=== PATIENT | female | born 1930 ===

== ENCOUNTER 2019-12-11 14:42 | Inpatient (IN) ==
[2019-12-11] MEDS ORDERED: ONDANSETRON 4 MG/2 ML VIAL IV PRN (16:15)
[2019-12-11] MEDS ORDERED: ALBUTEROL 2.5 MG/3 ML NEB RESP TX PRN (16:15)
[2019-12-11] MEDS ORDERED: EPINEPHrine 1 MG/ML VIAL ONE (16:22)
[2019-12-11] MEDS ORDERED: ALBUTEROL/IPRATROPIUM 3 ML NEB RESP TX PRN (16:24)
[2019-12-11] MEDS ORDERED: ATROPINE 1 MG/10 ML SYRINGE IV ONE (16:25)
[2019-12-11] MEDS ORDERED: LACTATED RINGERS 1,000 ML IV ONE (16:37)
[2019-12-11] MEDS: PANTOPRAZOLE 40 MG VIAL IV SCH (16:45)
[2019-12-11] MEDS ORDERED: ENOXAPARIN 30 MG/0.3 ML SYRINGE IV ONE (17:01)
[2019-12-11] MEDS ORDERED: MIDAZOLAM 2 MG/2 ML VIAL ONE (17:31)
[2019-12-11] MEDS ORDERED: NOREPINEPHRINE 4 MG/4 ML VIAL IV ONE (17:33)
[2019-12-11] MEDS: MIDAZOLAM 2 MG/2 ML VIAL IV PRN (17:45)
[2019-12-11] MEDS ORDERED: POTASSIUM CHLORIDE RIDER 10 MEQ in PREMIX 1 EACH IV PRN (18:24)
[2019-12-11] MEDS ORDERED: MAGNESIUM SULF RIDER 2 GM in PREMIX 1 EACH IV PRN (18:25)
[2019-12-11] MEDS ORDERED: MAGNESIUM SULF RIDER 4 GM in PREMIX 1 EACH IV PRN (18:25)
[2019-12-11] MEDS ORDERED: fentaNYL 100 MCG/2 ML VIAL IV ONE (18:26)
[2019-12-11] MEDS ORDERED: MEPERIDINE 50 MG/1 ML VIAL IV PRN (18:27)
[2019-12-11] MEDS ORDERED: GLUCAGON 1 MG VIAL IM PRN (18:28)
[2019-12-11] MEDS ORDERED: DEXTROSE 50% 25 GM/50 ML VIAL IV PRN (18:28)
[2019-12-11] MEDS ORDERED: fentaNYL 100 MCG/2 ML VIAL IV PRN (18:33)
[2019-12-11 19:06] LABS: ABG Base Excess -0.5 MMOL/L (-2.5-2.5); ABG PCO2 40.7 MM HG (35-48); ABG PH 7.386 (7.35-7.45); ABG TCO2 21.9 MMOL/L (23-27)
[2019-12-11] MEDS: fentaNYL INJ 1,250 MCG in SODIUM CHLORIDE 0.9% 225 ML IV PRN (20:12)
[2019-12-11] MEDS: MIDAZOLAM 100 MG in SODIUM CHLORIDE 0.9% 80 ML IV PRN (20:13)
[2019-12-11] MEDS: CISATRACURIUM 200 MG in SODIUM CHLORIDE 0.9% 180 ML IV PRN (20:13)
[2019-12-11] MEDS: LACTATED RINGERS 1,000 ML IV SCH (20:15)
[2019-12-11 20:42] LABS: Albumin 2.9 G/DL (3.4-5.0); Bilirubin,Total 0.4 MG/DL (0.2-1.0); CKMB % 4.2 %; Osmolality,Calculated 290.5 MOS/KG (273-304); Total Protein 5.9 G/DL (6.4-8.3); Troponin I 2.13 NG/ML (0.00-0.045)
[2019-12-11 20:44] LABS: Basophils % 0.2 % (0.0-0.8); Eosinophils % 0.2 % (0.00-10.9); Hematocrit 34.8 VOL% (35.7-47.0); Immature Granulocytes % 1.9 %; Immature Granulocytes Absolute 0.33 #; Lymphocytes % 5.9 % (21.3-54.2); Mean Corpuscular HGB Conc 31.6 GM/DL (32-36); Mean Corpuscular Volume 96.7 FL (87-102); Mean Platelet Volume 11.4 FL (9.6-12.0); Monocytes % 5.5 % (1.7-12.7); Neutrophils % 86.3 % (38.7-73.9); Platelet Count 172 T/CUMM (130-400); Red Cell Distribution Width 12.6 % (9.3-17.3); White Blood Count 17.7 T/CUMM (4-12)
[2019-12-11] MEDS: INSULIN REGULAR 100 UNIT/ML IV SCH (20:48)
[2019-12-11 20:51] LABS: INR 1.1; PT Patient Result 11.8 SECS (9.8-11.9)
[2019-12-11] MEDS: ALBUTEROL 2.5 MG/3 ML NEB RESP TX SCH (20:52)
[2019-12-11] MEDS ORDERED: ENOXAPARIN 30 MG/0.3 ML SYRINGE SUBCUT SCH (21:00)
[2019-12-11 21:25] LABS: Band Neutrophils 2 % (0-10); Lymphocytes 12 % (20-55); Platelet Estimate Normal; Segmented Neutrophils 81 % (50-85); Total Cells Counted 100
[2019-12-11] MEDS: MINERAL OIL/PETROLATUM OPH OINT 3.5 GM TUBE BOTH EYES SCH (21:59)
[2019-12-12] MEDS: INSULIN REGULAR 100 UNIT/ML IV SCH ×6 (00:27→20:11)
[2019-12-12 00:48] LABS: Blood Urea Nitrogen 33 MG/DL (7-18); CKMB % 4.4 %; Estimated Glom Filtration Rate 30 ML/MIN; Glucose 247 MG/DL (74-106); Osmolality,Calculated 295.3 MOS/KG (273-304)
[2019-12-12 00:49] LABS: INR 1.2; PT Patient Result 12.4 SECS (9.8-11.9)
[2019-12-12 01:10] LABS: Basophils % 0.2 % (0.0-0.8); Eosinophils % 0.1 % (0.00-10.9); Hemoglobin 10.5 GM/DL (12.0-16.0); Immature Granulocytes % 1.3 %; Immature Granulocytes Absolute 0.19 #; Lymphocytes # 0.9 10*3/uL (1.4-4.0); Lymphocytes % 5.9 % (21.3-54.2); Mean Corpuscular HGB Conc 32.8 GM/DL (32-36); Mean Platelet Volume 11.8 FL (9.6-12.0); Monocytes % 5.1 % (1.7-12.7); Neutrophils % 87.4 % (38.7-73.9); Platelet Count 156 T/CUMM (130-400); Red Blood Count 3.44 MC/CUMM (3.8-5.5); Red Cell Distribution Width 12.5 % (9.3-17.3); White Blood Count 14.9 T/CUMM (4-12)
[2019-12-12] MEDS: POTASSIUM CHLORIDE RIDER 20 MEQ in PREMIX 1 EACH IV PRN ×2 (01:18→08:00)
[2019-12-12 01:39] LABS: Band Neutrophils 2 % (0-10); Hypochromasia Slight; Lymphocytes 10 % (20-55); Platelet Estimate Normal; Segmented Neutrophils 85 % (50-85); Total Cells Counted 100
[2019-12-12] MEDS: LACTATED RINGERS 1,000 ML IV SCH ×4 (01:59→23:05)
[2019-12-12] MEDS: ALBUTEROL 2.5 MG/3 ML NEB RESP TX SCH (02:11)
[2019-12-12] MEDS: fentaNYL INJ 1,250 MCG in SODIUM CHLORIDE 0.9% 225 ML IV PRN ×3 (02:39→17:00)
[2019-12-12 03:38] LABS: ABG HCO3 22.8 MMOL/L (20-26); ABG TCO2 15.2 MMOL/L (23-27)
[2019-12-12 03:44] LABS: ABG PCO2 15.3 MM HG (35-48); ABG PH 7.653 (7.35-7.45)
[2019-12-12 03:45] LABS: Basophils % 0.1 % (0.0-0.8); Eosinophils % 0.1 % (0.00-10.9); Hematocrit 31.5 VOL% (35.7-47.0); Hemoglobin 10.6 GM/DL (12.0-16.0); Immature Granulocytes % 0.6 %; Immature Granulocytes Absolute 0.08 #; Lymphocytes % 7.1 % (21.3-54.2); Mean Corpuscular HGB Conc 33.7 GM/DL (32-36); Mean Corpuscular Volume 89.5 FL (87-102); Mean Platelet Volume 11.5 FL (9.6-12.0); Monocytes % 4.8 % (1.7-12.7); Neutrophils % 87.3 % (38.7-73.9); Platelet Count 147 T/CUMM (130-400); Red Blood Count 3.52 MC/CUMM (3.8-5.5); Red Cell Distribution Width 12.4 % (9.3-17.3); White Blood Count 13.9 T/CUMM (4-12)
[2019-12-12 04:09] LABS: Albumin 2.7 G/DL (3.4-5.0); Bilirubin,Total 0.6 MG/DL (0.2-1.0); Calcium 7.8 MG/DL (8.5-10.1); Osmolality,Calculated 293.4 MOS/KG (273-304); Total Protein 5.5 G/DL (6.4-8.3)
[2019-12-12 04:11] LABS: Band Neutrophils 2 % (0-10); Hypochromasia 1+; Lymphocytes 7 % (20-55); Platelet Estimate Adequate; Segmented Neutrophils 86 % (50-85); Total Cells Counted 100
[2019-12-12 06:53] LABS: Basophils % 0.1 % (0.0-0.8); Eosinophils % 0.1 % (0.00-10.9); Hematocrit 32.3 VOL% (35.7-47.0); Hemoglobin 10.9 GM/DL (12.0-16.0); Immature Granulocytes % 1.3 %; Immature Granulocytes Absolute 0.14 #; Lymphocytes # 0.8 10*3/uL (1.4-4.0); Lymphocytes % 7.5 % (21.3-54.2); Mean Corpuscular HGB Conc 33.7 GM/DL (32-36); Mean Platelet Volume 11.3 FL (9.6-12.0); Platelet Count 122 T/CUMM (130-400); Red Blood Count 3.55 MC/CUMM (3.8-5.5); Red Cell Distribution Width 12.1 % (9.3-17.3)
[2019-12-12 06:58] LABS: INR 1.1; PT Patient Result 11.7 SECS (9.8-11.9); Partial Thromboplastin Time 29.3 SECS (23.9-33.8)
[2019-12-12 07:10] LABS: ABG Base Excess -2.3 MMOL/L (-2.5-2.5); ABG HCO3 18.5 MMOL/L (20-26); ABG Oxygen Saturation 98.9 % (95-100); ABG PCO2 21.1 MM HG (35-48); ABG PO2 210.7 MM HG (80-95); ABG TCO2 19.1 MMOL/L (23-27)
[2019-12-12 07:17] LABS: Band Neutrophils 1 % (0-10); CKMB % 4.7 %; Calcium 8.3 MG/DL (8.5-10.1); Lymphocytes 2 % (20-55); Osmolality,Calculated 292.4 MOS/KG (273-304); Platelet Estimate Normal; Segmented Neutrophils 96 % (50-85); Total Cells Counted 100
[2019-12-12 07:19] LABS: Hypochromasia Slight; Troponin I 1.35 NG/ML (0.00-0.045)
[2019-12-12 09:06] LABS: ABG Base Excess -1.9 MMOL/L (-2.5-2.5); ABG HCO3 22.8 MMOL/L (20-26); ABG Oxygen Saturation 99.9 % (95-100); ABG PCO2 27.5 MM HG (35-48); ABG PH 7.482 (7.35-7.45); ABG TCO2 18.5 MMOL/L (23-27)
[2019-12-12] MEDS: MINERAL OIL/PETROLATUM OPH OINT 3.5 GM TUBE BOTH EYES SCH ×3 (09:14→20:12)
[2019-12-12] MEDS: ENOXAPARIN 40 MG/0.4 ML SYRINGE SUBCUT SCH (09:14)
[2019-12-12] MEDS: POTASSIUM CHLORIDE 20 MEQ/15 ML UDCUP PER TUBE SCH ×3 (09:14→17:20)
[2019-12-12 10:53] LABS: Bilirubin,Urine Negative (Negative); Blood, Urine Small mg/dL (Negative); Glucose,Urine (UA) 50 mg/dL (Negative); Hyaline Casts,Urine 1 /LPF (0-3); Ketones,Urine 20 mg/dL (Negative); Mucus,Urine Occasional /LPF (Occasional); Nitrite,Urine Negative (Negative); Protein,Urine Negative; RBC,Urine 16 /HPF (0-4); Squamous Epithelial Cell,Urine Occasional /HPF (0-10); Urine Appearance CLEAR (Clear); Urine Color Yellow (Yellow); Urine Specific Gravity 1.029 (1.001-1.035); Urine Urobilinogen < 2.0 EU/DL (0.2-1.0); WBC,Urine 23 /HPF (0-6)
[2019-12-12] MEDS: CISATRACURIUM 200 MG in SODIUM CHLORIDE 0.9% 180 ML IV PRN (11:26)
[2019-12-12 12:47] LABS: Basophils % 0.1 % (0.0-0.8); Hematocrit 29.3 VOL% (35.7-47.0); Hemoglobin 9.6 GM/DL (12.0-16.0); Immature Granulocytes % 1.7 %; Immature Granulocytes Absolute 0.15 #; Lymphocytes # 0.7 10*3/uL (1.4-4.0); Lymphocytes % 8.1 % (21.3-54.2); Mean Corpuscular HGB Conc 32.8 GM/DL (32-36); Mean Corpuscular Volume 92.1 FL (87-102); Mean Platelet Volume 11.1 FL (9.6-12.0); Monocytes % 3.5 % (1.7-12.7); Neutrophils % 86.6 % (38.7-73.9); Platelet Count 104 T/CUMM (130-400); Red Blood Count 3.18 MC/CUMM (3.8-5.5); Red Cell Distribution Width 12.2 % (9.3-17.3); White Blood Count 9.1 T/CUMM (4-12)
[2019-12-12 12:53] LABS: INR 1.1; PT Patient Result 11.7 SECS (9.8-11.9); Partial Thromboplastin Time 33.7 SECS (23.9-33.8)
[2019-12-12 12:57] LABS: CKMB % 5.6 %; Calcium 7.7 MG/DL (8.5-10.1); Osmolality,Calculated 292.3 MOS/KG (273-304)
[2019-12-12 13:01] LABS: Troponin I 1.03 NG/ML (0.00-0.045)
[2019-12-12] MEDS: NOREPINEPHRINE 8 MG in SODIUM CHLORIDE 0.9% 242 ML IV PRN ×2 (13:04→17:03)
[2019-12-12] MEDS: PANTOPRAZOLE 40 MG VIAL IV SCH (17:20)
[2019-12-12] MEDS: HEPARIN/NACL 0.9% 2 UNITS/ML 500 ML IV SCH (17:24)
[2019-12-12 17:54] LABS: Lymphocytes 10 % (20-55); Segmented Neutrophils 86 % (50-85); Total Cells Counted 100
[2019-12-12 18:24] LABS: Basophils % 0.2 % (0.0-0.8); Eosinophils % 0.1 % (0.00-10.9); Hematocrit 32.5 VOL% (35.7-47.0); Hemoglobin 10.8 GM/DL (12.0-16.0); Immature Granulocytes % 0.8 %; Immature Granulocytes Absolute 0.09 #; Lymphocytes # 0.9 10*3/uL (1.4-4.0); Lymphocytes % 7.7 % (21.3-54.2); Mean Corpuscular HGB Conc 33.2 GM/DL (32-36); Mean Corpuscular Volume 90.8 FL (87-102); Mean Platelet Volume 11.6 FL (9.6-12.0); Monocytes % 3.4 % (1.7-12.7); Neutrophils % 87.8 % (38.7-73.9); Platelet Count 133 T/CUMM (130-400); Red Blood Count 3.58 MC/CUMM (3.8-5.5); Red Cell Distribution Width 12.6 % (9.3-17.3); White Blood Count 11.7 T/CUMM (4-12)
[2019-12-12 18:29] LABS: INR 1.1; PT Patient Result 11.3 SECS (9.8-11.9); Partial Thromboplastin Time 34.5 SECS (23.9-33.8)
[2019-12-12] MEDS ORDERED: FUROSEMIDE 40 MG/4 ML VIAL IV ONE (18:30)
[2019-12-12 18:42] LABS: CKMB % 6.3 %; Calcium 7.8 MG/DL (8.5-10.1); Osmolality,Calculated 289.4 MOS/KG (273-304)
[2019-12-12 18:44] LABS: Troponin I 1.04 NG/ML (0.00-0.045)
[2019-12-12] MEDS: methylPREDNISolone SOD SUC 40 MG/1 ML VIAL IV SCH (18:47)
[2019-12-12 18:50] LABS: ABG HCO3 21.1 MMOL/L (20-26); ABG Oxygen Saturation 99.5 % (95-100); ABG PCO2 35.9 MM HG (35-48); ABG TCO2 18.8 MMOL/L (23-27)
[2019-12-13] MEDS: INSULIN REGULAR 100 UNIT/ML IV SCH ×6 (00:24→20:36)
[2019-12-13 00:52] LABS: Calcium 7.8 MG/DL (8.5-10.1); Osmolality,Calculated 292.3 MOS/KG (273-304)
[2019-12-13 01:01] LABS: Basophils % 0.2 % (0.0-0.8); Hematocrit 35.2 VOL% (35.7-47.0); Hemoglobin 11.4 GM/DL (12.0-16.0); Immature Granulocytes % 0.2 %; Immature Granulocytes Absolute 0.03 #; Lymphocytes # 0.5 10*3/uL (1.4-4.0); Lymphocytes % 3.5 % (21.3-54.2); Mean Corpuscular HGB Conc 32.4 GM/DL (32-36); Mean Corpuscular Volume 93.4 FL (87-102); Mean Platelet Volume 11.8 FL (9.6-12.0); Monocytes % 3.3 % (1.7-12.7); Neutrophils % 92.8 % (38.7-73.9); Platelet Count 142 T/CUMM (130-400); Red Blood Count 3.77 MC/CUMM (3.8-5.5); Red Cell Distribution Width 12.9 % (9.3-17.3); White Blood Count 13.5 T/CUMM (4-12)
[2019-12-13 01:03] LABS: PT Patient Result 11.2 SECS (9.8-11.9); Partial Thromboplastin Time 37.6 SECS (23.9-33.8)
[2019-12-13] MEDS: MIDAZOLAM 100 MG in SODIUM CHLORIDE 0.9% 80 ML IV PRN (01:36)
[2019-12-13 01:55] LABS: Band Neutrophils 12 % (0-10); Lymphocytes 5 % (20-55); Metamyelocytes 3 %; Segmented Neutrophils 76 % (50-85); Total Cells Counted 100
[2019-12-13 01:56] LABS: Giant Platelets Few
[2019-12-13 01:57] LABS: Hypochromasia Slight; Platelet Estimate Normal
[2019-12-13] MEDS: fentaNYL INJ 1,250 MCG in SODIUM CHLORIDE 0.9% 225 ML IV PRN (02:37)
[2019-12-13 03:20] LABS: ABG Base Excess -6.8 MMOL/L (-2.5-2.5); ABG Oxygen Saturation 98.9 % (95-100); ABG PCO2 36.3 MM HG (35-48); ABG TCO2 16.8 MMOL/L (23-27); Basophils % 0.2 % (0.0-0.8); Hematocrit 35.9 VOL% (35.7-47.0); Hemoglobin 11.8 GM/DL (12.0-16.0); Immature Granulocytes % 0.3 %; Immature Granulocytes Absolute 0.05 #; Lymphocytes # 0.4 10*3/uL (1.4-4.0); Lymphocytes % 2.6 % (21.3-54.2); Mean Corpuscular HGB Conc 32.9 GM/DL (32-36); Mean Corpuscular Volume 92.8 FL (87-102); Mean Platelet Volume 11.2 FL (9.6-12.0); Neutrophils % 93.9 % (38.7-73.9); Platelet Count 157 T/CUMM (130-400); Red Blood Count 3.87 MC/CUMM (3.8-5.5); Red Cell Distribution Width 13.1 % (9.3-17.3); White Blood Count 14.5 T/CUMM (4-12)
[2019-12-13 04:32] LABS: Band Neutrophils 11 % (0-10); Lymphocytes 4 % (20-55); Metamyelocytes 3 %; Segmented Neutrophils 79 % (50-85)
[2019-12-13 04:41] LABS: Ovalocytes 1+; Platelet Estimate Normal; Total Cells Counted 100
[2019-12-13] MEDS: NOREPINEPHRINE 8 MG in SODIUM CHLORIDE 0.9% 242 ML IV PRN ×3 (05:38→19:11)
[2019-12-13] MEDS: methylPREDNISolone SOD SUC 40 MG/1 ML VIAL IV SCH ×2 (06:34→18:37)
[2019-12-13 06:47] LABS: Basophils % 0.2 % (0.0-0.8); Hematocrit 36.9 VOL% (35.7-47.0); Hemoglobin 11.9 GM/DL (12.0-16.0); Immature Granulocytes % 0.2 %; Immature Granulocytes Absolute 0.03 #; Lymphocytes # 0.3 10*3/uL (1.4-4.0); Lymphocytes % 2.5 % (21.3-54.2); Mean Corpuscular HGB Conc 32.2 GM/DL (32-36); Mean Corpuscular Volume 92.5 FL (87-102); Neutrophils % 93.1 % (38.7-73.9); Platelet Count 154 T/CUMM (130-400); Red Blood Count 3.99 MC/CUMM (3.8-5.5); Red Cell Distribution Width 13.1 % (9.3-17.3); White Blood Count 13.9 T/CUMM (4-12)
[2019-12-13 06:53] LABS: PT Patient Result 10.9 SECS (9.8-11.9); Partial Thromboplastin Time 35.6 SECS (23.9-33.8)
[2019-12-13 06:54] LABS: Calcium 7.8 MG/DL (8.5-10.1); Osmolality,Calculated 290.5 MOS/KG (273-304)
[2019-12-13 07:15] LABS: Band Neutrophils 12 % (0-10); Lymphocytes 1 % (20-55); Segmented Neutrophils 87 % (50-85); Total Cells Counted 100
[2019-12-13 07:16] LABS: Burr Cells Slight; Hypochromasia Slight; Microcytosis Slight
[2019-12-13] MEDS: ENOXAPARIN 40 MG/0.4 ML SYRINGE SUBCUT SCH (09:10)
[2019-12-13] MEDS: MINERAL OIL/PETROLATUM OPH OINT 3.5 GM TUBE BOTH EYES SCH ×3 (09:11→20:50)
[2019-12-13 11:02] LABS: ABG Base Excess -9.1 MMOL/L (-2.5-2.5); ABG HCO3 17.2 MMOL/L (20-26); ABG Oxygen Saturation 99.1 % (95-100); ABG PCO2 35.7 MM HG (35-48); ABG PH 7.283 (7.35-7.45); ABG TCO2 15.3 MMOL/L (23-27)
[2019-12-13 11:07] LABS: Basophils % 0.2 % (0.0-0.8); Hematocrit 35.7 VOL% (35.7-47.0); Hemoglobin 11.3 GM/DL (12.0-16.0); Immature Granulocytes % 0.2 %; Immature Granulocytes Absolute 0.03 #; Lymphocytes # 0.3 10*3/uL (1.4-4.0); Lymphocytes % 2.2 % (21.3-54.2); Mean Corpuscular HGB Conc 31.7 GM/DL (32-36); Mean Corpuscular Volume 94.9 FL (87-102); Mean Platelet Volume 11.9 FL (9.6-12.0); Monocytes % 3.2 % (1.7-12.7); Neutrophils % 94.2 % (38.7-73.9); Platelet Count 151 T/CUMM (130-400); Red Blood Count 3.76 MC/CUMM (3.8-5.5); Red Cell Distribution Width 13.3 % (9.3-17.3); White Blood Count 12.7 T/CUMM (4-12)
[2019-12-13 11:20] LABS: PT Patient Result 11.1 SECS (9.8-11.9); Partial Thromboplastin Time 39.2 SECS (23.9-33.8)
[2019-12-13 11:26] LABS: Band Neutrophils 7 % (0-10); Lymphocytes 4 % (20-55); Metamyelocytes 1 %; Segmented Neutrophils 84 % (50-85); Total Cells Counted 100
[2019-12-13 11:27] LABS: Acanthocytes Few; Hypochromasia Slight; Microcytosis Slight; Polychromasia Slight
[2019-12-13 11:28] LABS: Platelet Estimate Adequate
[2019-12-13 11:34] LABS: Albumin 2.6 G/DL (3.4-5.0); Bilirubin,Total 0.5 MG/DL (0.2-1.0); Calcium 7.6 MG/DL (8.5-10.1); Osmolality,Calculated 298.1 MOS/KG (273-304); Total Protein 5.8 G/DL (6.4-8.3)
[2019-12-13 11:35] LABS: CKMB % 8.1 %
[2019-12-13 11:41] LABS: Troponin I 1.68 NG/ML (0.00-0.045)
[2019-12-13] MEDS: PANTOPRAZOLE 40 MG VIAL IV SCH (16:42)
[2019-12-13] MEDS ORDERED: INFLUENZA VIRUS VACCINE 0.5 ML SYRINGE IM ONE (18:27)
[2019-12-13] MEDS: HEPARIN/NACL 0.9% 2 UNITS/ML 500 ML IV SCH (18:50)
[2019-12-13] MEDS: INSULIN REGULAR 100 UNIT/ML SUBCUT SCH (20:50)
[2019-12-14] MEDS: INSULIN REGULAR 100 UNIT/ML SUBCUT SCH ×7 (00:54→23:48)
[2019-12-14] MEDS: LACTATED RINGERS 1,000 ML IV SCH ×2 (00:55→17:09)
[2019-12-14] MEDS: NOREPINEPHRINE 8 MG in SODIUM CHLORIDE 0.9% 242 ML IV PRN (02:44)
[2019-12-14 04:23] LABS: ABG Base Excess -5.1 MMOL/L (-2.5-2.5); ABG HCO3 20.2 MMOL/L (20-26); ABG Oxygen Saturation 99.1 % (95-100); ABG PCO2 37.2 MM HG (35-48); ABG PH 7.342 (7.35-7.45); ABG TCO2 18.4 MMOL/L (23-27)
[2019-12-14 04:44] LABS: Basophils # 0.1 10*3/uL (0.0-0.2); Basophils % 0.8 % (0.0-0.8); Hemoglobin 10.2 GM/DL (12.0-16.0); Immature Granulocytes % 0.2 %; Immature Granulocytes Absolute 0.02 #; Lymphocytes # 0.2 10*3/uL (1.4-4.0); Lymphocytes % 2.1 % (21.3-54.2); Mean Corpuscular HGB Conc 31.9 GM/DL (32-36); Mean Corpuscular Volume 92.2 FL (87-102); Mean Platelet Volume 12.8 FL (9.6-12.0); Monocytes % 4.3 % (1.7-12.7); Neutrophils % 92.6 % (38.7-73.9); Red Blood Count 3.47 MC/CUMM (3.8-5.5); Red Cell Distribution Width 13.4 % (9.3-17.3); White Blood Count 11.6 T/CUMM (4-12)
[2019-12-14 04:53] LABS: Platelet Count 109 T/CUMM (130-400)
[2019-12-14 05:00] LABS: Bilirubin,Total 0.7 MG/DL (0.2-1.0); Calcium 7.4 MG/DL (8.5-10.1); Total Protein 5.4 G/DL (6.4-8.3)
[2019-12-14 05:10] LABS: Band Neutrophils 14 % (0-10); Lymphocytes 4 % (20-55); Metamyelocytes 1 %; Platelet Estimate Adequate; Segmented Neutrophils 77 % (50-85); Total Cells Counted 100
[2019-12-14] MEDS: methylPREDNISolone SOD SUC 40 MG/1 ML VIAL IV SCH ×2 (05:34→18:16)
[2019-12-14] MEDS: ENOXAPARIN 30 MG/0.3 ML SYRINGE SUBCUT SCH (09:45)
[2019-12-14] MEDS: MINERAL OIL/PETROLATUM OPH OINT 3.5 GM TUBE BOTH EYES SCH ×3 (09:45→20:20)
[2019-12-14] MEDS: PANTOPRAZOLE 40 MG VIAL IV SCH (17:03)
[2019-12-14] MEDS: HEPARIN/NACL 0.9% 2 UNITS/ML 500 ML IV SCH (17:12)
[2019-12-15] MEDS: LACTATED RINGERS 1,000 ML IV SCH ×4 (02:31→18:55)
[2019-12-15] MEDS: INSULIN REGULAR 100 UNIT/ML SUBCUT SCH ×5 (04:30→19:58)
[2019-12-15 06:02] LABS: ABG Base Excess -0.6 MMOL/L (-2.5-2.5); ABG HCO3 23.9 MMOL/L (20-26); ABG Oxygen Saturation 98.6 % (95-100); ABG PCO2 40.6 MM HG (35-48); ABG PH 7.386 (7.35-7.45); ABG TCO2 22.3 MMOL/L (23-27)
[2019-12-15 06:07] LABS: Basophils % 0.1 % (0.0-0.8); Hematocrit 28.7 VOL% (35.7-47.0); Hemoglobin 9.4 GM/DL (12.0-16.0); Immature Granulocytes % 0.7 %; Immature Granulocytes Absolute 0.07 #; Lymphocytes # 0.2 10*3/uL (1.4-4.0); Lymphocytes % 2.1 % (21.3-54.2); Mean Corpuscular HGB Conc 32.8 GM/DL (32-36); Mean Corpuscular Volume 91.4 FL (87-102); Mean Platelet Volume 13.4 FL (9.6-12.0); Monocytes % 4.3 % (1.7-12.7); Neutrophils % 92.8 % (38.7-73.9); Red Blood Count 3.14 MC/CUMM (3.8-5.5); Red Cell Distribution Width 13.6 % (9.3-17.3)
[2019-12-15 06:19] LABS: Platelet Count 88 T/CUMM (130-400)
[2019-12-15] MEDS: methylPREDNISolone SOD SUC 40 MG/1 ML VIAL IV SCH ×2 (06:29→18:30)
[2019-12-15 06:33] LABS: Band Neutrophils 9 % (0-10); Hypochromasia Slight; Lymphocytes 2 % (20-55); Segmented Neutrophils 84 % (50-85); Total Cells Counted 100
[2019-12-15 06:34] LABS: Microcytosis Slight; Platelet Estimate Decreased; Target Cells Slight; Tear Drop Cells Slight
[2019-12-15 06:40] LABS: Albumin 1.9 G/DL (3.4-5.0); Bilirubin,Total 0.9 MG/DL (0.2-1.0); Calcium 8.2 MG/DL (8.5-10.1); Total Protein 5.8 G/DL (6.4-8.3)
[2019-12-15] MEDS: cefTRIAXone 1,000 MG in SYRINGE 1 EACH IV SCH (09:18)
[2019-12-15] MEDS: ENOXAPARIN 30 MG/0.3 ML SYRINGE SUBCUT SCH (09:23)
[2019-12-15] MEDS: MINERAL OIL/PETROLATUM OPH OINT 3.5 GM TUBE BOTH EYES SCH ×3 (09:24→20:30)
[2019-12-15] MEDS: amLODIPine 5 MG TABLET PO SCH (10:11)
[2019-12-15] MEDS: carvediloL 6.25 MG TABLET PO SCH ×2 (10:11→20:31)
[2019-12-15] MEDS: MORPHINE 4 MG/1 ML VIAL IV PRN ×2 (15:06→21:52)
[2019-12-15] MEDS ORDERED: LABETALOL 20 MG/4 ML SYRINGE IV ONE (15:28)
[2019-12-15] MEDS: PANTOPRAZOLE 40 MG VIAL IV SCH (17:14)
[2019-12-15] MEDS ORDERED: LABETALOL 20 MG/4 ML SYRINGE IV PRN (18:18)
[2019-12-15] MEDS: HEPARIN/NACL 0.9% 2 UNITS/ML 500 ML IV SCH (18:54)
[2019-12-15] MEDS: LATANOPROST 0.005% OPH SOLN 2.5 ML BOTTLE BOTH EYES SCH (20:30)
[2019-12-15] MEDS: BRINZOLAMIDE BRIMONIDINE BOTH EYES SCH (20:31)
[2019-12-15] MEDS ORDERED: LORazepam 2 MG/1 ML VIAL IV ONE (22:18)
[2019-12-16] MEDS: INSULIN REGULAR 100 UNIT/ML SUBCUT SCH ×6 (00:07→21:20)
[2019-12-16] MEDS: LACTATED RINGERS 1,000 ML IV SCH ×3 (00:31→15:40)
[2019-12-16 04:24] LABS: ABG Base Excess 1.3 MMOL/L (-2.5-2.5); ABG HCO3 25.4 MMOL/L (20-26); ABG Oxygen Saturation 89.2 % (95-100); ABG PCO2 44.9 MM HG (35-48); ABG PH 7.382 (7.35-7.45); ABG PO2 60.9 MM HG (80-95); ABG TCO2 24.4 MMOL/L (23-27)
[2019-12-16 04:26] LABS: Basophils # 0.1 10*3/uL (0.0-0.2); Basophils % 1.6 % (0.0-0.8); Hematocrit 29.9 VOL% (35.7-47.0); Hemoglobin 9.7 GM/DL (12.0-16.0); Immature Granulocytes % 0.7 %; Immature Granulocytes Absolute 0.04 #; Lymphocytes # 0.3 10*3/uL (1.4-4.0); Lymphocytes % 5.3 % (21.3-54.2); Mean Corpuscular HGB Conc 32.4 GM/DL (32-36); Mean Corpuscular Volume 92.6 FL (87-102); Mean Platelet Volume 12.7 FL (9.6-12.0); Monocytes % 7.4 % (1.7-12.7); Platelet Count 101 T/CUMM (130-400); Red Blood Count 3.23 MC/CUMM (3.8-5.5); Red Cell Distribution Width 13.5 % (9.3-17.3); White Blood Count 5.7 T/CUMM (4-12)
[2019-12-16 04:45] LABS: Band Neutrophils 7 % (0-10); Hypochromasia 1+; Lymphocytes 2 % (20-55); Microcytosis 1+; Platelet Estimate Decreased; Segmented Neutrophils 85 % (50-85); Total Cells Counted 100
[2019-12-16 04:50] LABS: Alanine Aminotransferase 31 U/L (13-56); Albumin 1.6 G/DL (3.4-5.0); Alkaline Phosphatase 62 U/L (45-117); Aspartate Amino Transferase 50 U/L (0-37); Bilirubin,Total < 0.39 MG/DL (0.2-1.0); Blood Urea Nitrogen 45 MG/DL (7-18); Calcium 8.3 MG/DL (8.5-10.1); Estimated Glom Filtration Rate 51 ML/MIN; Glucose 191 MG/DL (74-106); Osmolality,Calculated 306.6 MOS/KG (273-304); Total Protein 5.8 G/DL (6.4-8.3)
[2019-12-16] MEDS: methylPREDNISolone SOD SUC 40 MG/1 ML VIAL IV SCH ×2 (05:59→17:59)
[2019-12-16] MEDS ORDERED: FUROSEMIDE 40 MG/4 ML VIAL IV ONE (08:17)
[2019-12-16] MEDS: cefTRIAXone 1,000 MG in SYRINGE 1 EACH IV SCH (10:35)
[2019-12-16] MEDS: ENOXAPARIN 30 MG/0.3 ML SYRINGE SUBCUT SCH (10:47)
[2019-12-16] MEDS: amLODIPine 5 MG TABLET PO SCH (10:47)
[2019-12-16] MEDS: carvediloL 6.25 MG TABLET PO SCH ×2 (10:47→21:20)
[2019-12-16] MEDS: MINERAL OIL/PETROLATUM OPH OINT 3.5 GM TUBE BOTH EYES SCH ×3 (10:48→21:20)
[2019-12-16 11:28] LABS: ABG Base Excess 1.6 MMOL/L (-2.5-2.5); ABG HCO3 25.8 MMOL/L (20-26); ABG Oxygen Saturation 95.2 % (95-100); ABG PCO2 44.5 MM HG (35-48); ABG PO2 78.4 MM HG (80-95); ABG TCO2 24.5 MMOL/L (23-27)
[2019-12-16] MEDS: BRINZOLAMIDE BRIMONIDINE BOTH EYES SCH ×3 (13:19→21:00)
[2019-12-16] MEDS: PANTOPRAZOLE 40 MG VIAL IV SCH (16:29)
[2019-12-16] MEDS: HEPARIN/NACL 0.9% 2 UNITS/ML 500 ML IV SCH (17:53)
[2019-12-16] MEDS: LATANOPROST 0.005% OPH SOLN 2.5 ML BOTTLE BOTH EYES SCH (21:21)
[2019-12-16] MEDS: MIDAZOLAM 2 MG/2 ML VIAL IV PRN (22:40)
[2019-12-16] MEDS ORDERED: LORazepam 2 MG/1 ML VIAL ONE (22:48)
[2019-12-16] MEDS: LORazepam 2 MG/1 ML VIAL IV PRN ×3 (22:50→23:34)
[2019-12-16] MEDS ORDERED: VALPROIC ACID INJ 750 MG in SODIUM CHLORIDE 0.9% 100 ML IV ONE (23:32)
[2019-12-16] MEDS ORDERED: NOREPINEPHRINE 8 MG in SODIUM CHLORIDE 0.9% 242 ML IV PRN (23:36)
[2019-12-16] MEDS ORDERED: NOREPINEPHRINE 4 MG/4 ML VIAL IV ONE (23:40)
[2019-12-16] MEDS: VALPROIC ACID INJ 500 MG in SODIUM CHLORIDE 0.9% 100 ML IV SCH (23:58)
[2019-12-17] MEDS: INSULIN REGULAR 100 UNIT/ML SUBCUT SCH ×6 (00:20→21:14)
[2019-12-17] MEDS: LORazepam 2 MG/1 ML VIAL IV PRN ×3 (02:50→21:13)
[2019-12-17 04:15] LABS: ABG Base Excess 3.2 MMOL/L (-2.5-2.5); ABG HCO3 27.2 MMOL/L (20-26); ABG Oxygen Saturation 97.8 % (95-100); ABG PCO2 44.9 MM HG (35-48); ABG PH 7.409 (7.35-7.45); ABG TCO2 25.1 MMOL/L (23-27)
[2019-12-17 04:37] LABS: Basophils % 0.1 % (0.0-0.8); Eosinophils % 0.1 % (0.00-10.9); Hematocrit 28.3 VOL% (35.7-47.0); Hemoglobin 9.3 GM/DL (12.0-16.0); Immature Granulocytes % 0.2 %; Immature Granulocytes Absolute 0.02 #; Lymphocytes # 0.3 10*3/uL (1.4-4.0); Lymphocytes % 3.7 % (21.3-54.2); Mean Corpuscular HGB Conc 32.9 GM/DL (32-36); Mean Corpuscular Volume 90.7 FL (87-102); Monocytes % 5.2 % (1.7-12.7); NRBC # 0.02 10*3/uL; Neutrophils % 90.7 % (38.7-73.9); Platelet Count 113 T/CUMM (130-400); Red Blood Count 3.12 MC/CUMM (3.8-5.5); Red Cell Distribution Width 13.5 % (9.3-17.3); White Blood Count 8.4 T/CUMM (4-12)
[2019-12-17 04:48] LABS: Calcium 8.3 MG/DL (8.5-10.1); Osmolality,Calculated 307.4 MOS/KG (273-304)
[2019-12-17 05:02] LABS: Band Neutrophils 5 % (0-10); Lymphocytes 4 % (20-55); Platelet Estimate Decreased; Segmented Neutrophils 85 % (50-85); Total Cells Counted 100
[2019-12-17 05:03] LABS: Hypochromasia 1+; Microcytosis 1+
[2019-12-17] MEDS: methylPREDNISolone SOD SUC 40 MG/1 ML VIAL IV SCH ×2 (05:30→18:22)
[2019-12-17] MEDS ORDERED: VALPROIC ACID INJ 500 MG in SODIUM CHLORIDE 0.9% 100 ML IV SCH (08:00)
[2019-12-17] MEDS: BRINZOLAMIDE BRIMONIDINE BOTH EYES SCH ×3 (10:21→21:17)
[2019-12-17] MEDS: LACTATED RINGERS 1,000 ML IV SCH (10:38)
[2019-12-17] MEDS: MINERAL OIL/PETROLATUM OPH OINT 3.5 GM TUBE BOTH EYES SCH ×3 (10:58→21:17)
[2019-12-17] MEDS: carvediloL 6.25 MG TABLET PO SCH ×2 (10:58→21:17)
[2019-12-17] MEDS: ENOXAPARIN 30 MG/0.3 ML SYRINGE SUBCUT SCH (10:58)
[2019-12-17] MEDS: amLODIPine 5 MG TABLET PO SCH (10:58)
[2019-12-17] MEDS: PIPERACILLIN/TAZOBACTAM 3,375 MG in DEXTROSE 5% 100 ML IV SCH ×2 (12:11→18:28)
[2019-12-17] MEDS: VALPROIC ACID INJ 500 MG in DEXTROSE 5% 100 ML IV SCH ×2 (12:18→18:16)
[2019-12-17] MEDS: NOREPINEPHRINE 8 MG in DEXTROSE 5% 242 ML IV PRN (17:20)
[2019-12-17] MEDS: levETIRAcetam INJ 500 MG in DEXTROSE 5% 100 ML IV SCH ×2 (17:40→21:17)
[2019-12-17] MEDS: PANTOPRAZOLE 40 MG VIAL IV SCH (17:48)
[2019-12-17] MEDS: HEPARIN/NACL 0.9% 2 UNITS/ML 500 ML IV SCH (17:50)
[2019-12-17] MEDS: LATANOPROST 0.005% OPH SOLN 2.5 ML BOTTLE BOTH EYES SCH (21:17)
[2019-12-18] MEDS: VALPROIC ACID INJ 500 MG in DEXTROSE 5% 100 ML IV SCH ×3 (00:20→22:07)
[2019-12-18] MEDS: INSULIN REGULAR 100 UNIT/ML SUBCUT SCH ×6 (00:23→21:46)
[2019-12-18] MEDS: PIPERACILLIN/TAZOBACTAM 3,375 MG in DEXTROSE 5% 100 ML IV SCH ×3 (00:23→16:40)
[2019-12-18] MEDS: NOREPINEPHRINE 8 MG in DEXTROSE 5% 242 ML IV PRN ×4 (01:05→22:25)
[2019-12-18 05:01] LABS: ABG Base Excess -3.6 MMOL/L (-2.5-2.5); ABG HCO3 21.3 MMOL/L (20-26); ABG Oxygen Saturation 93.6 % (95-100); ABG PH 7.278 (7.35-7.45); ABG PO2 80.6 MM HG (80-95); ABG TCO2 21.7 MMOL/L (23-27)
[2019-12-18 05:13] LABS: Basophils % 0.1 % (0.0-0.8); Hematocrit 30.1 VOL% (35.7-47.0); Hemoglobin 9.7 GM/DL (12.0-16.0); Immature Granulocytes % 0.4 %; Immature Granulocytes Absolute 0.06 #; Lymphocytes # 0.5 10*3/uL (1.4-4.0); Lymphocytes % 3.1 % (21.3-54.2); Mean Corpuscular HGB Conc 32.2 GM/DL (32-36); Mean Platelet Volume 13.8 FL (9.6-12.0); NRBC # 0.03 10*3/uL; Neutrophils % 93.4 % (38.7-73.9); Platelet Count 111 T/CUMM (130-400); Red Blood Count 3.17 MC/CUMM (3.8-5.5); Red Cell Distribution Width 13.8 % (9.3-17.3); White Blood Count 15.8 T/CUMM (4-12)
[2019-12-18 05:35] LABS: Band Neutrophils 8 % (0-10); Lymphocytes 3 % (20-55); Nucleated Red Blood Cells 1 (0-5); Platelet Estimate Normal; Segmented Neutrophils 87 % (50-85); Total Cells Counted 100
[2019-12-18 05:36] LABS: Hypochromasia Slight
[2019-12-18 05:38] LABS: Calcium 8.2 MG/DL (8.5-10.1); Osmolality,Calculated 316.8 MOS/KG (273-304)
[2019-12-18] MEDS: levETIRAcetam INJ 500 MG in DEXTROSE 5% 100 ML IV SCH ×3 (06:00→22:08)
[2019-12-18] MEDS: LACTATED RINGERS 1,000 ML IV SCH (07:04)
[2019-12-18] MEDS: methylPREDNISolone SOD SUC 40 MG/1 ML VIAL IV SCH ×2 (07:04→17:54)
[2019-12-18 07:53] VITALS: BP 115/39
[2019-12-18] MEDS: ENOXAPARIN 30 MG/0.3 ML SYRINGE SUBCUT SCH (08:27)
[2019-12-18] MEDS: carvediloL 6.25 MG TABLET PO SCH ×2 (08:28→22:08)
[2019-12-18] MEDS: BRINZOLAMIDE BRIMONIDINE BOTH EYES SCH ×3 (08:28→22:13)
[2019-12-18] MEDS: amLODIPine 5 MG TABLET PO SCH (08:28)
[2019-12-18] MEDS: MINERAL OIL/PETROLATUM OPH OINT 3.5 GM TUBE BOTH EYES SCH ×3 (08:28→22:12)
[2019-12-18] MEDS ORDERED: INFLUENZA VIRUS VACCINE 0.5 ML SYRINGE IM ONE (09:24)
[2019-12-18] MEDS: INSULIN GLARGINE 100 UNIT/ML SUBCUT SCH (13:31)
[2019-12-18] MEDS ORDERED: LORazepam 2 MG/1 ML VIAL ONE ×2 (14:44→18:18)
[2019-12-18] MEDS: LORazepam 2 MG/1 ML VIAL IV PRN ×2 (14:47→18:20)
[2019-12-18] MEDS ORDERED: NOREPINEPHRINE 4 MG/4 ML VIAL IV ONE (15:38)
[2019-12-18] MEDS: HEPARIN/NACL 0.9% 2 UNITS/ML 500 ML IV SCH (16:40)
[2019-12-18] MEDS: PANTOPRAZOLE 40 MG VIAL IV SCH (16:40)
[2019-12-18] MEDS: LATANOPROST 0.005% OPH SOLN 2.5 ML BOTTLE BOTH EYES SCH (22:13)
[2019-12-19] MEDS: INSULIN REGULAR 100 UNIT/ML SUBCUT SCH ×5 (03:38→16:23)
[2019-12-19] MEDS: LACTATED RINGERS 1,000 ML IV SCH (03:39)
[2019-12-19 04:48] LABS: Basophils % 0.1 % (0.0-0.8); Hematocrit 30.7 VOL% (35.7-47.0); Hemoglobin 10.3 GM/DL (12.0-16.0); Immature Granulocytes % 0.9 %; Immature Granulocytes Absolute 0.18 #; Lymphocytes # 0.8 10*3/uL (1.4-4.0); Mean Corpuscular HGB Conc 33.6 GM/DL (32-36); Mean Corpuscular Volume 88.7 FL (87-102); Mean Platelet Volume 14.1 FL (9.6-12.0); Monocytes % 2.1 % (1.7-12.7); NRBC # 0.09 10*3/uL; Neutrophils % 92.9 % (38.7-73.9); Platelet Count 101 T/CUMM (130-400); Red Blood Count 3.46 MC/CUMM (3.8-5.5); Red Cell Distribution Width 13.2 % (9.3-17.3); White Blood Count 19.5 T/CUMM (4-12)
[2019-12-19] MEDS: NOREPINEPHRINE 8 MG in DEXTROSE 5% 242 ML IV PRN ×2 (05:06→10:38)
[2019-12-19 05:11] LABS: Band Neutrophils 7 % (0-10); Lymphocytes 3 % (20-55); Nucleated Red Blood Cells 1 (0-5); Platelet Estimate Decreased; Segmented Neutrophils 90 % (50-85); Total Cells Counted 100
[2019-12-19 05:12] LABS: Burr Cells Slight; Calcium 8.1 MG/DL (8.5-10.1); Hypochromasia 1+; Microcytosis Slight; Osmolality,Calculated 310.1 MOS/KG (273-304); Ovalocytes Slight
[2019-12-19] MEDS: PIPERACILLIN/TAZOBACTAM 3,375 MG in DEXTROSE 5% 100 ML IV SCH ×2 (05:20→09:10)
[2019-12-19] MEDS: VALPROIC ACID INJ 500 MG in DEXTROSE 5% 100 ML IV SCH ×3 (06:24→15:29)
[2019-12-19] MEDS: levETIRAcetam INJ 500 MG in DEXTROSE 5% 100 ML IV SCH ×2 (06:25→14:15)
[2019-12-19] MEDS: methylPREDNISolone SOD SUC 40 MG/1 ML VIAL IV SCH (06:30)
[2019-12-19] MEDS: ENOXAPARIN 30 MG/0.3 ML SYRINGE SUBCUT SCH (09:09)
[2019-12-19] MEDS: carvediloL 6.25 MG TABLET PO SCH (09:09)
[2019-12-19] MEDS: BRINZOLAMIDE BRIMONIDINE BOTH EYES SCH ×2 (09:31→14:31)
[2019-12-19] MEDS: INSULIN GLARGINE 100 UNIT/ML SUBCUT SCH (09:32)
[2019-12-19] MEDS: MINERAL OIL/PETROLATUM OPH OINT 3.5 GM TUBE BOTH EYES SCH ×2 (09:32→14:31)
[2019-12-19] MEDS: amLODIPine 5 MG TABLET PO SCH (09:33)
[2019-12-19] MEDS: MORPHINE 4 MG/1 ML VIAL IV PRN (12:19)
[2019-12-19] MEDS ORDERED: MORPHINE 4 MG/1 ML VIAL IV PRN (14:00)
[2019-12-19] MEDS: PANTOPRAZOLE 40 MG VIAL IV SCH (17:01)
[2019-12-19] MEDS: HEPARIN/NACL 0.9% 2 UNITS/ML 500 ML IV SCH (17:01)
== END 2019-12-19 20:30 | disposition expired | DRG 207 ==
LOC: SUATTDRO 16:05 → N.ICU 16:05 → N.4E 12-19 20:04
PROVIDERS: ADMIT Internal Medicine; ATTEND Family Medicine